=== PATIENT | male | born 1965 | race Caucasian/White ===

== ENCOUNTER 2016-05-14 21:30 | Emergency (ER) | payer OTHER ==
[~2016-05-14] VITALS: Ht 188 cm; Wt 115.0 kg
[2016-05-14 21:37] VITALS: BP 161/98; PULSE 93; RESP 20; TEMP 98.1; O2SAT 96
[2016-05-14] MEDS ORDERED: SODIUM CHLOR 0.9% 1000 ML INJ 1,000 ML IV ONE (21:44)
[2016-05-14] MEDS ORDERED: ONDANSETRON HCL 4 MG/2 ML VIAL IVP ONE (21:45)
[2016-05-14] MEDS ORDERED: SODIUM CHLORIDE 0.9% FLUSH 5 ML FLUSH IVF PRN (21:45)
--- NOTE | 2016-05-14 21:55 | PD ---
HPI Chief Complaint: Fall Time Seen by Provider: 21:48 Travel History International Travel<30 days: No Contact w/Intl Traveler<30days: No Traveled to known affect area: No History of Present Illness HPI 50-year-old male brought in by EMS status post fall at local bar. Patient was outside the bar when he tapped on the window he was noted fall forward hitting his head and had short duration of loss of consciousness. EMS was called and the patient was brought here backboarded and with C-spine intact. IV was noted in the right forearm. Patient is inebriated but alert and answers questions appropriately. Patient is not complaining of any pain of any kind. He is moving all extremities spontaneously. Patient is noted to have abrasions to the left cheek and forehead and the nose. Patient denies dental injury. He denies neck pain. He denies headache or head pain. Patient has no dizziness or nausea. Patient denies any chronic medical problems such as diabetes or heart disease. He admits that he drank "a lot". Patient smokes cigars. Patient has no known drug allergies. [facility] Past Medical History Medical History: Unable to Obtain Social History Alcohol Use: Yes Tobacco Use: Yes Substance Use: No Allergies-Medications (Allergen,Severity, Reaction): Coded Allergies: No Known Allergies (Unverified , 05/14/16) Reported Meds & Prescriptions Reported Meds & Active Scripts Active No Active Prescriptions or Reported Medications Review of Systems ROS Limitations: Intoxication General / Constitutional: No: Fever Eyes: No: Visual changes HENT: No: Headaches Cardiovascular: No: Chest Pain or Discomfort Respiratory: No: Shortness of Breath Gastrointestinal: No: Abdominal Pain Genitourinary: No: Dysuria Musculoskeletal: No: Pain Skin: No Rash Neurologic: No: Weakness Psychiatric: No: Depression Endocrine: No: Polydipsia Hematologic/Lymphatic: No: Easy Bruising Physical Exam Exam Limitations: Intoxication Narrative GENERAL: Patient is intoxicated. He appears in no acute distress. SKIN: Warm and dry. Normal color. Normal turgor. Abrasions are noted to the left cheek and lateral left forehead. There are several small abrasions to the nose without obvious deformity. There are no lip lacerations. HEAD: Atraumatic. Normocephalic. Patient complains of no pain with palpation of the head or face. EYES: Pupils equal and round. No scleral icterus. No injection or drainage. Ocular motions are equal bilaterally. ENT: Patient has dried nasal bleeding on the right without nasal discharge. Mucous membranes pink and moist. No buccal membrane lacerations are noted. No dental injury is noted. Pharynx is clear, and airway is patent. NECK: Trachea midline. Cervical spine is immobilized for CT scan. CARDIOVASCULAR: Regular rate and rhythm. No murmurs gallops or rubs. RESPIRATORY: No accessory muscle use. Clear to auscultation. Breath sounds equal bilaterally. No thoracic tenderness with palpation. GASTROINTESTINAL: Abdomen soft, non-tender, nondistended. Hepatic and splenic margins not palpable. MUSCULOSKELETAL: Extremities without clubbing, cyanosis, or edema. No obvious deformities. NEUROLOGICAL: Awake and alert. No obvious cranial nerve deficits. Motor grossly within normal limits. Five out of 5 muscle strength in the arms and legs. Normal speech. PSYCHIATRIC: Patient is intoxicated. Patient is cooperative and aware of person and place. Data Data Last Documented VS Vital Signs Date Time Temp Pulse Resp B/P Pulse Ox O2 Delivery O2 Flow Rate FiO2 05/14/16 21:37 98.1 93 20 161/98 96 Orders Electrocardiogram (05/14/16 21:44) Complete Blood Count With Diff (05/14/16 21:44) Comprehensive Metabolic Panel (05/14/16 21:44) Magnesium (Mg) (05/14/16 21:44) Ckmb (Isoenzyme) Profile (05/14/16 21:44) Troponin I (05/14/16 21:44) Act Partial Throm Time (Ptt) (05/14/16:44) Prothrombin Time / Inr (Pt) (05/14/16 21:44) Chest, Single Ap (05/14/16 21:44) Ct Brain W/O Iv Contrast(Rout) (05/14/16 21:44) Ct Cerv Spine W/O Contrast (05/14/16 21:44) Blood Glucose (05/14/16 21:44) Ecg Monitoring (05/14/16 21:44) Iv Access Insert/Monitor (05/14/16 21:44) Oximetry (05/14/16 21:44) Ondansetron Inj (Zofran Inj) (05/14/16 21:45) Sodium Chloride 0.9% Flush (Ns Flush) (05/14/16 21:45) Sodium Chlor 0.9% 1000 Ml Inj (Ns 1000 M (05/14/16 21:44) Alcohol (Ethanol) (05/14/16 21:44) Ct Facial Bones W/O Iv Cont (05/14/16 21:47) Labs Laboratory Tests Test 05/14/16 22:05 White Blood Count 9.5 TH/MM3 Red Blood Count 5.02 MIL/MM3 Hemoglobin 15.0 GM/DL Hematocrit 44.0 % Mean Corpuscular Volume 87.7 FL Mean Corpuscular Hemoglobin 30.0 PG Mean Corpuscular Hemoglobin 34.2 % Concent Red Cell Distribution Width 13.1 % Platelet Count 211 TH/MM3 Mean Platelet Volume 8.1 FL Neutrophils (%) (Auto) 71.7 % Lymphocytes (%) (Auto) 21.3 % Monocytes (%) (Auto) 4.6 % Eosinophils (%) (Auto) 1.8 % Basophils (%) (Auto) 0.6 % Neutrophils # (Auto) 6.8 TH/MM3 Lymphocytes # (Auto) 2.0 TH/MM3 Monocytes # (Auto) 0.4 TH/MM3 Eosinophils # (Auto) 0.2 TH/MM3 Basophils # (Auto) 0.1 TH/MM3 CBC Comment DIFF FINAL Differential Comment Prothrombin Time 11.1 SEC Prothromb Time International 1.0 RATIO Ratio Activated Partial 23.7 SEC Thromboplast Time MDM Medical Decision Making Medical Screen Exam Complete: Yes Emergency Medical Condition: Yes Differential Diagnosis EtOH intoxication. Fall. Facial injury. Loss of consciousness. Possible facial fracture. Possible skull fracture. Possible intracranial bleed. Possible neck fracture. Narrative Course Patient is medically stable at time of exam. Patient is cleared from the backboard with nursing assistance. CT of the head and neck are ordered. EKG and chest x-ray are ordered. Labs ordered including CBC, CMP, cardiac panel, serum EtOH level. IV access is obtained patient is given 1000 mL of normal saline bolus. Chest x-ray is unremarkable except some atelectasis in the bases per radiologist. Is not felt to be acute. EKG shows normal sinus rhythm without significant ST-T changes. This was reviewed with Dr. Jones. 2300 hrs. patient is discussed with Dr. Jones and she examines the patient and will assume care at this time for final disposition. CT and labs are currently still pending. Scripts No Active Prescriptions or Reported Meds Condition: Willis Santana May 14, 2016 21:54
--- NOTE | 2016-05-14 22:04 | RADRPT ---
EXAM DATE/TIME: 05/14/2016 21:56 [facility] COMPARISON: No previous studies available for comparison. INDICATIONS : Loss of conciousness after hitting window pane with head. MEDICAL HISTORY : None. SURGICAL HISTORY : None. ENCOUNTER: Initial ACUITY: 1 day PAIN SCORE: 0/10 LOCATION: Bilateral chest FINDINGS: A single view of the chest demonstrates minimal left basilar density. Right lung clear. Diminished yonis ng planes.. Osseous structures are intact. CONCLUSION: 1. Minimal left basilar density likely atelectasis. Jos Alarcon MD on May 14, 2016 at 22:01 Board Certified Radiologist. This report was verified electronically.
[2016-05-14 22:15] VITALS: BP 150/88; PULSE 98; RESP 18; O2SAT 97
[2016-05-14 22:21] LABS: AUTOMATED NEUTROPHIL # 6.8 TH/MM3 (1.8-7.7); BASOPHIL # 0.1 TH/MM3 (0-0.2); BASOPHIL % 0.6 % (0.0-2.0); EOSINOPHIL # 0.2 TH/MM3 (0-0.4); EOSINOPHIL % 1.8 % (0.0-4.0); HEMO FLAGS DIFF FINAL; LYMPH % 21.3 % (9.0-44.0); MEAN CELL VOLUME 87.7 FL (80.0-100.0); MEAN CORPUSCULAR HGB CONC 34.2 % (32.0-36.0); MONO % 4.6 % (0.0-8.0); NEUT % 71.7 % (16.0-70.0); PLATELET COUNT 211 TH/MM3 (150-450); RED BLOOD COUNT 5.02 MIL/MM3 (4.50-5.90); RED CELL DISTRIBUTION WIDTH 13.1 % (11.6-17.2); WHITE BLOOD COUNT 9.5 TH/MM3 (4.0-11.0)
[2016-05-14 22:27] LABS: APTT (PATIENT) 23.7 SEC (24.3-30.1); PROTHROMBIN TIME - PATIENT 11.1 SEC (9.8-11.6)
[2016-05-14 22:38] LABS: ALT (GPT) 38 U/L (12-78); ANION GAP 12 MEQ/L (5-15); AST (GOT) 16 U/L (15-37); BICARBONATE 27.1 MEQ/L (21.0-32.0); BLOOD UREA NITROGEN 7 MG/DL (7-18); CHLORIDE 103 MEQ/L (98-107); GLOMERULAR FILTRATION RATE 86 ML/MIN (>89); MAGNESIUM 2.4 MG/DL (1.5-2.5); POTASSIUM 3.6 MEQ/L (3.5-5.1); SODIUM (NA) 142 MEQ/L (136-145)
[2016-05-14 22:42] LABS: ALKALINE PHOSPHATASE 47 U/L (45-117); CREATINE KINASE 109 U/L (39-308); TOTAL BILIRUBIN ADULT 0.3 MG/DL (0.2-1.0)
[2016-05-14] MEDS ORDERED: TETANUS/DIPHTHERIA TOXOID ADULT 0.5 ML VIAL IM ONE (22:45)
[2016-05-14 22:57] LABS: CKMB 0.7 NG/ML (0.5-3.6)
--- NOTE | 2016-05-14 23:02 | PD ---
Physical Exam Date Seen by Provider: May 14, 2016 Time Seen by Provider: 23:01 Narrative Accepted in transfer of care from [place] GENERAL: Well-developed well-nourished male in no acute distress no respiratory distress SKIN: Warm and dry. Multiple abrasions to the right forehead right periorbital and cheek area without laceration HEAD: Normocephalic. EYES: No scleral icterus. No injection or drainage. NECK: Supple, trachea midline. No JVD or lymphadenopathy. CARDIOVASCULAR: Regular rate and rhythm without murmurs, gallops, or rubs. RESPIRATORY: Breath sounds equal bilaterally. No accessory muscle use. GASTROINTESTINAL: Abdomen soft, non-tender, nondistended. MUSCULOSKELETAL: No cyanosis, or edema. BACK: Nontender without obvious deformity. No CVA tenderness. Data Data Last Documented VS Vital Signs Date Time Temp Pulse Resp B/P Pulse Ox O2 Delivery O2 Flow Rate FiO2 05/14/16 21:37 98.1 93 20 161/98 96 Orders Electrocardiogram (05/14/16 21:44) Complete Blood Count With Diff (05/14/16 21:44) Comprehensive Metabolic Panel (05/14/16 21:44) Magnesium (Mg) (05/14/16 21:44) Ckmb (Isoenzyme) Profile (05/14/16:44) Troponin I (05/14/16:44) Act Partial Throm Time (Ptt) (05/14/16:44) Prothrombin Time / Inr (Pt) (05/14/16 21:44) Chest, Single Ap (05/14/16 21:44) Ct Brain W/O Iv Contrast(Rout) (05/14/16 21:44) Ct Cerv Spine W/O Contrast (05/14/16 21:44) Blood Glucose (05/14/16 21:44) Ecg Monitoring (05/14/16 21:44) Iv Access Insert/Monitor (05/14/16:44) Oximetry (05/14/16:44) Ondansetron Inj (Zofran Inj) (05/14/16 21:45) Sodium Chloride 0.9% Flush (Ns Flush) (05/14/16 21:45) Sodium Chlor 0.9% 1000 Ml Inj (Ns 1000 M (05/14/16 21:44) Alcohol (Ethanol) (05/14/16 21:44) Ct Facial Bones W/O Iv Cont (05/14/16 21:47) Tetanus/Diphtheria Tox Adult (Tetanus/Di (05/14/16 22:45) CKMB (05/14/16 22:05) CKMB% (05/14/16 22:05) Labs Laboratory Tests Test 05/14/16 22:05 White Blood Count 9.5 TH/MM3 Red Blood Count 5.02 MIL/MM3 Hemoglobin 15.0 GM/DL Hematocrit 44.0 % Mean Corpuscular Volume 87.7 FL Mean Corpuscular Hemoglobin 30.0 PG Mean Corpuscular Hemoglobin 34.2 % Concent Red Cell Distribution Width 13.1 % Platelet Count 211 TH/MM3 Mean Platelet Volume 8.1 FL Neutrophils (%) (Auto) 71.7 % Lymphocytes (%) (Auto) 21.3 % Monocytes (%) (Auto) 4.6 % Eosinophils (%) (Auto) 1.8 % Basophils (%) (Auto) 0.6 % Neutrophils # (Auto) 6.8 TH/MM3 Lymphocytes # (Auto) 2.0 TH/MM3 Monocytes # (Auto) 0.4 TH/MM3 Eosinophils # (Auto) 0.2 TH/MM3 Basophils # (Auto) 0.1 TH/MM3 CBC Comment DIFF FINAL Differential Comment Prothrombin Time 11.1 SEC Prothromb Time International 1.0 RATIO Ratio Activated Partial 23.7 SEC Thromboplast Time Sodium Level 142 MEQ/L Potassium Level 3.6 MEQ/L Chloride Level 103 MEQ/L Carbon Dioxide Level 27.1 MEQ/L Anion Gap 12 MEQ/L Blood Urea Nitrogen 7 MG/DL Creatinine 0.93 MG/DL Estimat Glomerular Filtration 86 ML/MIN Rate Random Glucose 145 MG/DL Calcium Level 8.0 MG/DL Magnesium Level 2.4 MG/DL Total Bilirubin 0.3 MG/DL Aspartate Amino Transf 16 U/L (AST/SGOT) Alanine Aminotransferase 38 U/L (ALT/SGPT) Alkaline Phosphatase 47 U/L Total Creatine Kinase 109 U/L Creatine Kinase MB 0.7 NG/ML Troponin I LESS THAN 0.02 NG/ML Total Protein 6.8 GM/DL Albumin 3.8 GM/DL Ethyl Alcohol Level 254 MG/DL [facility] Medical Record Reviewed: Yes Supervised Visit with JUSTIN: Yes Interpretation(s) alcohol: [address] 05/14/162146 Signed Impressions: Service Date/Time: Saturday, May 14, 2016 22:48 - CONCLUSION: 1. No fractures. Kg Powers MD Head CT 05/14/162143 Signed Impressions: Service Date/Time: Saturday, May 14, 2016 22:48 - CONCLUSION: No acute disease. Kg Powers MD Chest X-Ray 05/14/162143 Signed Impressions: Service Date/Time: Saturday, May 14, 2016 21:56 - CONCLUSION: 1. Minimal left basilar density likely atelectasis. Jos Alarcon MD Cervical Spine CT 05/14/162143 Signed Impressions: Service Date/Time: Saturday, May 14, 2016 22:48 - CONCLUSION: No acute disease. Kg Powers MD CBC & BMP Diagram 05/14/16 22:05 Vital Signs Date Time Temp Pulse Resp B/P Pulse Ox O2 Delivery O2 Flow Rate FiO2 05/14/16 21:37 98.1 93 20 161/98 96 Differential Diagnosis Minor CHI ICH cervical spine sprain strain fracture cord injury facial contusion fracture alcohol intoxication polysubstance ingestion electrolyte disturbance anemia Narrative Course Accepted transfer of care from Jose Dyson 50-year-old male presents to the emergency for for evaluation of possible head injury facial injury or neck injury after falling off of a barstool while drinking alcohol. Patient admits that he was drinking alcohol heavily. Patient admits that he was on a barstool and lost his balance and fell off. Patient denies feeling lightheaded or dizzy or having a syncopal episode and then falling from the chair. Patient denies any other injury to the chest back extremities and abdomen pelvis and denies any upper or lower extremity numbness tingling or weakness. On physical exam patient is identified to have soft tissue injury to the face with superficial abrasions no obvious facial deformity and no palpable bony abnormality to direct palpation in the periorbital rim area or to the nose or mandible. Airway is patent. Scalp reveals no hematoma or bony abnormality. Cervical spine with palpation along the midline reveals no bony step-off or tenderness. Remainder of exam is within normal limits. Patient's GCS is 15. Concur with current diagnostics which have been found to be grossly normal range except for patient's alcohol level of 254 and with imaging studies performed which revealed no acute traumatic abnormality. Cervical collar removed by me at 11:25 PM. Patient spouse is at bedside. At 12:15 AM patient remains clinically stable GCS remains 15; patient's spouse is at bedside and sober and able to take him home with her; Diagnosis Primary Impression: Alcohol intoxication Additional Impression: Facial contusion Referrals: Primary Care Physician 2 days Patient Instructions: General Instructions Additional Instruction: Keep abrasions clean and dry; apply topical antibiotic ointment as tolerated to areas of abrasions Apply ice intermittently to areas of soft tissue swelling for the first 12-24 hours Do not drink alcoholic beverages Follow head injury precautions 24 hours Follow-up with primary care provider call office in a.m. to schedule follow-up appointment in 2 days Return to the emergency department for any concerns or change in condition such as fever pain vomiting Do not drive any motorized vehicles 24 hours No work times one day Increase fluid hydration with non-alcoholic beverages Scripts No Active Prescriptions or Reported Meds Disposition: 01 DISCHARGE HOME Condition: Stable Agnieszka Jones MD May 14, 2016 23:02
--- NOTE | 2016-05-14 23:04 | RADRPT ---
EXAM DATE/TIME: 05/14/2016 22:48 [facility] COMPARISON: No previous studies available for comparison. INDICATIONS : Trauma, hit head on window. ETOH. RADIATION DOSE: 56.35 CTDIvol (mGy) MEDICAL HISTORY : None SURGICAL HISTORY : None. ENCOUNTER: Initial ACUITY: 1 day PAIN SCALE: 2/10 LOCATION: cranial TECHNIQUE: Multiple contiguous axial images were obtained of the head. Using automated exposure control and adj ustment of the mA and/or kV according to patient size, radiation dose was kept as low as reasonably a chievable to obtain optimal diagnostic quality images. FINDINGS: No hemorrhage, infarct, or mass. Patchy periventricular white matter disease. No fractures. CONCLUSION: No acute disease. Kg Powers MD on May 14, 2016 at 23:01 Board Certified Radiologist. This report was verified electronically.
--- NOTE | 2016-05-14 23:06 | RADRPT ---
EXAM DATE/TIME: 05/14/2016 22:48 [facility] COMPARISON: No previous studies available for comparison. INDICATIONS : Trauma, hit head on window. ETOH. RADIATION DOSE: 26.18 CTDIvol (mGy) MEDICAL HISTORY : None SURGICAL HISTORY : None. ENCOUNTER: Initial ACUITY: 1 day PAIN SCALE: 2/10 LOCATION: neck TECHNIQUE: Volumetric scanning of the cervical spine was performed. Multiplanar reconstructions in the sagittal, coronal and oblique axial planes were performed. Using automated exposure control and adjustment o f the mA and/or kV according to patient size, radiation dose was kept as low as reasonably achievable to obtain optimal diagnostic quality images. FINDINGS: VERTEBRAE: Normal vertebral body height. ALIGNMENT: No evidence of subluxation. C2-C3: The bony spinal canal is normal in size. No evidence of disc bulge or herniation. The neural forami na are bilaterally patent. C3-C4: The bony spinal canal is normal in size. No evidence of disc bulge or herniation. The neural forami na are bilaterally patent. C4-C5: The bony spinal canal is normal in size. No evidence of disc bulge or herniation. There is moderate right frontal stenosis secondary to uncovertebral. C5-C6: The bony spinal canal is normal in size. No evidence of disc bulge or herniation. The neural forami na are bilaterally patent. C6-C7: The bony spinal canal is normal in size. No evidence of disc bulge or herniation. The neural forami na are bilaterally patent. C7-T1: The bony spinal canal is normal in size. No evidence of disc bulge or herniation. The neural forami na are bilaterally patent. CONCLUSION: No acute disease. Kg Powers MD on May 14, 2016 at 23:03 Board Certified Radiologist. This report was verified electronically.
--- NOTE | 2016-05-14 23:08 | RADRPT ---
EXAM DATE/TIME: 05/14/2016 22:48 [facility] COMPARISON: CT CERVICAL SPINE W/O CONTRAST, May 14, 2016, 22:48. CT BRAIN W/O CONTRAST, May 14, 2016, 22:48. INDICATIONS : Trauma, hit head on window. ETOH. RADIATION DOSE: 21.96 CTDIvol (mGy) MEDICAL HISTORY : None SURGICAL HISTORY : None. ENCOUNTER: Initial ACUITY: 1 day PAIN SCORE: 2/10 LOCATION: facial TECHNIQUE: Volumetric scanning of the facial bones was performed. Using automated exposure control and adjustme nt of the mA and/or kV according to patient size, radiation dose was kept as low as reasonably achiev able to obtain optimal diagnostic quality images. FINDINGS: ORBITS: The orbital and infraorbital osseous structures are intact. The retroconal structures have a normal configuration. No radiopaque foreign bodies are seen. NASAL BONE: The nasal bone and maxillary spine are intact ZYGOMATIC ARCHES: Symmetric without evidence of fracture. SINUSES: The maxillary, ethmoid and frontal sinuses are intact. No air-fluid levels seen. NASAL CAVITY: The nasal septum is deviated to the right with a prominent nasal septal spur directed to the right. The lacrimal ducts are intact. SOFT TISSUES: No radiopaque foreign bodies seen. No soft-tissue swelling is seen. INTRACRANIAL: No intracranial air seen. CRIBIFORM PLATE: Grossly intact. CONCLUSION: 1. No fractures. Kg Powers MD on May 14, 2016 at 23:06 Board Certified Radiologist. This report was verified electronically.
[2016-05-14 23:30] VITALS: BP 167/86; PULSE 94; RESP 18; O2SAT 97
[2016-05-15 00:28] VITALS: BP 153/88
--- NOTE | 2016-05-15 14:40 | EKG ---
Date Performed: 05/14/2016 Time Performed: 22:01:18 PTAGE: 50 years EKG: Sinus rhythm MINIMAL VOLTAGE CRITERIA FOR LVH, CONSIDER NORMAL VARIANT NONSPECIFIC T-WAVE ABNORMALITY BORDERLINE ECG NO PREVIOUS TRACING DOCTOR: Adam Salas Interpretating Date/Time 05/15/2016 14:39:12
== END 2016-05-15 00:34 | disposition home or self-care (01) ==
LOC: NEPC 21:30
DX: S00.81XA Abrasion of other part of head, initial encounter (principal); S00.83XA Contusion of other part of head, initial encounter; F10.129 Alcohol abuse with intoxication, unspecified; F17.290 Nicotine dependence, other tobacco product, uncomplicated; R94.31 Abnormal electrocardiogram [ECG] [EKG]; Y90.8 Blood alcohol level of 240 mg/100 ml or more; W19.XXXA Unspecified fall, initial encounter; Y93.9 Activity, unspecified; Y92.89 Other specified places as the place of occurrence of the external cause; Z23 Encounter for immunization
CPT/HCPCS: 70450; 70486; 71010; 72125; 80053; 80307; 82550; 82552; 83735; 84484; 85025; 85610; 85730; 90471; 90714; 93005; 96374; 99285; J2405; J7030